=== PATIENT | male | born 1990 | race African-American/Black ===

== ENCOUNTER 2017-06-23 07:33 | Emergency (ER) | payer OTHER ==
[~2017-06-23] VITALS: Ht 190.5 cm; Wt 107.5 kg
[2017-06-23 07:45] VITALS: Ht 190.5 cm; Wt 107.5 kg
[2017-06-23 08:10] LABS: microscopic required? YES; urine erythrocyte 3+ (NEGATIVE)
[2017-06-23 08:16] LABS: BASOPHIL % 0.4 % (0-2); PLATELET COUNT 346 x10^3mcL (130-400); RED CELL DISTRIBUTION WIDTH 14.3 % (11.5-14.5)
[2017-06-23 08:20] LABS: CALCIUM 9.2 mg/dL (8.5-10.1); CARBON DIOXIDE 27.3 mmol/L (21-32); CHLORIDE SERUM 101 mmol/L (98-107); CREATININE SERUM 1.4 mg/dL (0.7-1.3); GFR1 > 60 mL/min; GLUCOSE SERUM 141 mg/dL (74-106); POTASSIUM SERUM 4.2 mmol/L (3.5-5.1); SODIUM SERUM 139 mmol/L (136-145)
[2017-06-23 08:24] LABS: ALBUMIN 4.3 g/dL (3.4-5.0); ALKALINE PHOSPHATASE 64 U/L (46-116); ALT/SGPT 41 U/L (16-63); AMYLASE 61 U/L (25-115); AST/SGOT 24 U/L (15-37); BILIRUBIN TOTAL 1.1 mg/dL (0.20-1.00); LIPASE 64 IU/L (73-393); TOTAL PROTEIN, SERUM 8.2 g/dL (6.4-8.2)
[2017-06-23 10:16] VITALS: BP 118/71
== END 2017-06-23 10:45 | disposition home or self-care (01) ==
LOC: ED 07:33
PROVIDERS: Specialist
DX: N23 Unspecified renal colic (principal); R11.10 Vomiting, unspecified
CPT/HCPCS: 83880; J1885; J2405; J7030